=== PATIENT | female | born 1970 | race African-American/Black ===

== ENCOUNTER → 2016-09-08 | Day surgery (SDC) | payer OTHER ==
[~2016-09-08] VITALS: Ht 154.9 cm; Wt 81.6 kg
--- NOTE | 2016-09-08 11:51 | Operative Report ---
Operative/Inv Procedure Report Surgery Date: 09/08/16 Name of Procedure: Panniculectomy Pre-Operative Diagnosis: Intertrigo Post-Operative Diagnosis: Same Estimated Blood Loss: scant (100) Surgeon/[employer] Manager: ADELA NAM MD Anesthesia: general endotracheal tube Operative/Procedure Note Note: Patient was counseled Tafoya proceeded the alternatives risks and expected outcomes as relates to her request for surgical intervention to treat chronic intertrigo. The patient was told that that is not a panniculectomy or abdominoplasty and that it is a minimal procedure of her reconstructive nature that involves removing some of the lower pannus skin distort the umbilicus and it does not treat any other areas of the abdominal wall or mons. She was given and a SPS informed consent she has returned sign. I discussed with her and her family again prior to surgery the difference between a cosmetic abdominoplasty and a reconstructive panniculectomy. She was marked in the standing position. She was then put on the operating table Venodyne boots are placed and intravenous sedation correction intravenous antibiotics and general anesthesia was established. The abdomen was prepped and draped in usual sterile fashion. The incisions were deepened as marked and replaced with a measuring tape. He flap was removed with abdominal wall 3 layer closure over 2 drains was carried out. End dictation
== END ==
LOC: STS 04:00
DX: L30.4 Erythema intertrigo (principal); Q63.1 Lobulated, fused and horseshoe kidney; Z98.84 Bariatric surgery status
CPT/HCPCS: 81025; J0131; J0690; J2250; J2405